=== PATIENT | male | born 1940 | race Caucasian/White ===

== ENCOUNTER 2018-11-15 20:14 | Observation (INO) | payer MEDICARE, OTHER, SELFPAY ==
[2018-11-15] VITALS (40 sets, daily range): BP systolic 116–160; BP diastolic 57–116; PULSE 59–92; RESP 11–38; TEMP 37; O2SAT 86–97
--- NOTE | 2018-11-15 20:15 | W.ED.GENAD ---
Discharge Plan Disposition Patient Disposition: [facility] INPATIENT Condition: Good Discharge Details Chief Complaint: Dizzy/Sync Clinical Impression: Syncope Primary Care Provider: Surinder Aaron ED Provider: Chetan Guzman Home Meds and New Rx's Prescriptions: No Action terazosin 1 mg Capsule 1 mg PO DAILY RF: 0 omeprazole 40 mg Capsule,Delayed Release(Dr/Ec) 40 mg PO DAILY RF: 0 aspirin [Aspir-81] 81 mg Tablet,Delayed Release (Dr/Ec) 81 mg PO HS RF: 0 Medical Decision Making 78-year-old male here with syncopal event. He has had a couple beers tonight. He does not typically drink. He has no complaints of at this time. He has had syncope but in the distant past. He has low O2 saturations with a long history of smoking but has no known lung disease, has no wheezing, does not use inhalers. He denies feeling short of breath. He has no chest pain. He has no leg pain or leg swelling. He has no headache and is neurologically intact. He did feel the event happening. He has no murmur. We will maintain on monitor for rhythm monitoring. His EKG shows nothing acute currently. Laboratory studies sent. Will check urine. We will get CTA of the chest to evaluate for PE given syncope and low O2 saturations. Patient laboratory studies are unremarkable other than an elevated TSH but the free T4 is normal. Urinalysis negative. Alcohol level essentially 0. CT of the chest shows no PE. There is no effusion or consolidation. He has COPD changes only. Likely his oxygen saturations are related to his previous smoking. He has been sinus rhythm on the monitor. However, given his age and witnessed syncopal event he should be observed overnight on a monitor though I think this was likely just a vagal event. Case discussed with hospitalist. Patient seen by hospitalist. Patient admitted for monitoring overnight. Lab Data Lab results reviewed: Yes I reviewed the patient's lab results. ECG Data Attestation: I personally reviewed and interpreted this ECG (s) as follows: Prior ECG tracings: not available for review Interpretation: Normal sinus rhythm at 69. Left axis. No acute ST changes. HPI General Mode of arrival: EMS. Date/Time Provider Initiated Documentation: 11/15/18 20:30. Limitations to Documentation: no limitations. Information obtained by: patient. HPI Narrative: Patient presents to ED by ambulance after syncopal event. Patient is up here visiting family. They were having dinner. He has had a couple of beers and typically does not drink. He knew something was wrong and started to feel lightheaded and unwell. Did not say anything and eventually passed out for about 30 to 40 seconds. He came to relatively quickly and there is no report of seizure activity or confusion. EMS was called. Fingerstick was normal on scene. Vital signs were normal on scene. He is awake and alert and has no complaints of. He reports passing out in the distant past but nothing recently. He is a former smoker but has no known cardiovascular disease or lung disease. He denies any recent illness. He has no fever, cough, shortness of breath, chest pain, abdominal pain, vomiting, diarrhea, black stool, bloody stool, urinary symptoms. Related Data Home Medications Medication Instructions Recorded Confirmed aspirin [Aspir-81] 81 mg PO HS 11/15/18 11/15/18 omeprazole 40 mg PO DAILY 11/15/18 11/15/18 terazosin 1 mg PO DAILY 11/15/18 11/15/18 Allergies Allergy/AdvReac Type Severity Reaction Status Date / Time No Known Allergies Allergy Unverified 11/15/18 20:26 Review of Systems Review of Systems 04/14 Review of Systems completed and is negative except as stated above in HPI (Systems reviewed: Const, Eyes, ENT, Resp, CV, GI, , MSK, Skin, Neuro) PFSH Medical History GERD (gastroesophageal reflux disease) (Chronic) HTN (hypertension) (Chronic) Prostate cancer (Chronic) Social History Smoking/Tobacco Use Status: Former Tobacco Use Quit Date: 11/15/18 Alcohol Intake: current Alcohol Intake frequency: holidays/special occasions only Alcohol type: beer Drug use: Never Do you feel safe at home: Yes Do you feel safe in your relationship?: Yes Exam Narrative Exam Narrative: Vitals: Afebrile. Slightly elevated diastolic pressure. Low O2 saturation in the 90 range. Const: WDWN elderly male in NAD. HEENT: NC/AT. Normal facial exam. Eyes: Normal conjunctiva and sclera. Neck: Supple. Trachea midline. Lungs: Normal respiratory effort. Lungs are clear. Cor: RRR without murmur/gallop. Good radial pulses. GI: Soft. NT/ND. No guarding or rebound. Neuro: A+O x 3. CN II-XII in tact. Normal strength and no focal deficit. Normal sensory. Normal speech and cognition. Ext: No C/C/E. No deformity or tenderness. No calf tenderness. Skin: Warm and dry without rash.
--- NOTE | 2018-11-15 20:18 | ED.GENADUL_ITS ---
Discharge Plan Disposition Patient Disposition: [facility] INPATIENT Condition: Good Discharge Details Chief Complaint: Dizzy/Sync Clinical Impression: Syncope Primary Care Provider: Surinder Aaron ED Provider: Chetan Guzman Home Meds and New Rx's Prescriptions: No Action terazosin 1 mg Capsule 1 mg PO DAILY RF: 0 omeprazole 40 mg Capsule,Delayed Release(Dr/Ec) 40 mg PO DAILY RF: 0 aspirin [Aspir-81] 81 mg Tablet,Delayed Release (Dr/Ec) 81 mg PO HS RF: 0 Medical Decision Making 78-year-old male here with syncopal event. He has had a couple beers tonight. He does not typically drink. He has no complaints of at this time. He has had syncope but in the distant past. He has low O2 saturations with a long history of smoking but has no known lung disease, has no wheezing, does not use inhalers. He denies feeling short of breath. He has no chest pain. He has no leg pain or leg swelling. He has no headache and is neurologically intact. He did feel the event happening. He has no murmur. We will maintain on monitor for rhythm monitoring. His EKG shows nothing acute currently. Laboratory studies sent. Will check urine. We will get CTA of the chest to evaluate for PE given syncope and low O2 saturations. Patient laboratory studies are unremarkable other than an elevated TSH but the free T4 is normal. Urinalysis negative. Alcohol level essentially 0. CT of the chest shows no PE. There is no effusion or consolidation. He has COPD changes only. Likely his oxygen saturations are related to his previous smoking. He has been sinus rhythm on the monitor. However, given his age and witnessed syncopal event he should be observed overnight on a monitor though I think this was likely just a vagal event. Case discussed with hospitalist. Patient seen by hospitalist. Patient admitted for monitoring overnight. Lab Data Lab results reviewed: Yes I reviewed the patient's lab results. ECG Data Attestation: I personally reviewed and interpreted this ECG (s) as follows: Prior ECG tracings: not available for review Interpretation: Normal sinus rhythm at 69. Left axis. No acute ST changes. HPI General Mode of arrival: EMS . Date/Time Provider Initiated Documentation: 11/15/18 20:30 . Limitations to Documentation: no limitations . Information obtained by: patient . HPI Narrative: Patient presents to ED by ambulance after syncopal event. Patient is up here visiting family. They were having dinner. He has had a couple of beers and typically does not drink. He knew something was wrong and started to feel lightheaded and unwell. Did not say anything and eventually passed out for about 30 to 40 seconds. He came to relatively quickly and there is no report of seizure activity or confusion. EMS was called. Fingerstick was normal on scene. Vital signs were normal on scene. He is awake and alert and has no complaints of. He reports passing out in the distant past but nothing recently. He is a former smoker but has no known cardiovascular disease or lung disease. He denies any recent illness. He has no fever, cough, shortness of breath, chest pain, abdominal pain, vomiting, diarrhea, black stool, bloody stool, urinary symptoms. Related Data Home Medications Medication Instructions Recorded Confirmed aspirin [Aspir-81] 81 mg PO HS 11/15/18 11/15/18 omeprazole 40 mg PO DAILY 11/15/18 11/15/18 terazosin 1 mg PO DAILY 11/15/18 11/15/18 Allergies Allergy/AdvReac Type Severity Reaction Status Date / Time No Known Allergies Allergy Unverified 11/15/18 20:26 Review of Systems Review of Systems 04/14 Review of Systems completed and is negative except as stated above in HPI (Systems reviewed: Const, Eyes, ENT, Resp, CV, GI, , MSK, Skin, Neuro) PFSH Medical History GERD (gastroesophageal reflux disease) (Chronic) HTN (hypertension) (Chronic) Prostate cancer (Chronic) Social History Smoking/Tobacco Use Status: Former Tobacco Use Quit Date: 11/15/18 Alcohol Intake: current Alcohol Intake frequency: holidays/special occasions only Alcohol type: beer Drug use: Never Do you feel safe at home: Yes Do you feel safe in your relationship?: Yes Exam Narrative Exam Narrative: Vitals: Afebrile. Slightly elevated diastolic pressure. Low O2 saturation in the 90 range. Const: WDWN elderly male in NAD. HEENT: NC/AT. Normal facial exam. Eyes: Normal conjunctiva and sclera. Neck: Supple. Trachea midline. Lungs: Normal respiratory effort. Lungs are clear. Cor: RRR without murmur/gallop. Good radial pulses. GI: Soft. NT/ND. No guarding or rebound. Neuro: A+O x 3. CN II-XII in tact. Normal strength and no focal deficit. Normal sensory. Normal speech and cognition. Ext: No C/C/E. No deformity or tenderness. No calf tenderness. Skin: Warm and dry without rash.
[2018-11-15 20:46] LABS: Abs Immature Grans 0.02 k/cumm (0.0-0.09); Absolute Basophil Count 0.02 k/cumm (0.0-0.2); Absolute Eosinophil Count 0.17 k/cumm (0.0-0.7); Absolute Monocyte Count 0.89 k/cumm (0.11-0.7); Absolute Neutrophil Count 4.38 k/cumm (1.2-6.7); Basophils % 0.2; Eosinophils % 1.9; HCT 41.2 % (40.0-50.0); HGB 13.9 g/dL (13.5-17.5); Immature Grans % 0.2; Lymphocytes % 37.6; Mean Corp. HGB Concentration 33.7 g/dL (32.0-36.0); Mean Corpuscular Volume 91.8 fL (80-95); Mean Platelet Volume 10.6 fL (8.0-11.0); Monocytes % 10.1; Platelet Count 245 x1000/uL (130-400); RBC 4.49 m/cumm (4.50-6.00); RBC Distribution Width 13.1 % (11.8-14.1); White Blood Cell Count 8.78 k/cumm (4.4-10.8)
[2018-11-15 21:02] LABS: ETHANOL BLOOD 6.6 mg/dL (<3)
[2018-11-15 21:13] LABS: ALT 27 U/L (12-78); AST 16 U/L (15-37); Albumin 3.8 g/dL (3.4-5.0); Alkaline Phosphatase 102 U/L (46-116); BUN 20 mg/dL (7-18); Bilirubin, Total 0.4 mg/dL (0.2-1.0); CREATININE 1.09 mg/dL (0.70-1.30); Calcium 9.2 mg/dL (8.5-10.1); Chloride 104 mmol/L (98-107); Glucose 120 mg/dL (70-100); Magnesium 2.2 mg/dL (1.8-2.4); Potassium 4.2 mmol/L (3.5-5.1); Sodium 141 mmol/L (136-145); TSH (W/Ref FT4) 5.32 uIU/mL (0.358-3.74); Total Protein 7.2 g/dL (6.4-8.2)
[2018-11-15 21:14] LABS: Troponin I < 0.02 ng/mL (0.00-0.06)
[2018-11-15 21:31] LABS: FREE T4 0.86 ng/dL (0.76-1.46)
[2018-11-15 21:39] LABS: Bilirubin Negative (Negative); Blood Negative (Negative); Clarity Clear; Glucose Negative (Negative); Ketones Negative (Negative); Leukocyte Esterase Negative (Negative); Nitrite Negative (Negative); Urobilinogen 0.2 EU/dL (Up TO 0.2)
[2018-11-15] MEDS: Normal Saline 1,000 ML 150 ML IV (21:40)
[2018-11-15] MEDS: Normal Saline Flush 10 ML SYR IVP (21:41)
[2018-11-15] MEDS: Omnipaque 350 MG/ML 100 ML BTL IJ (22:16)
--- NOTE | 2018-11-15 22:26 | DI.CT_ITS ---
SYMPTOM/DIAGNOSIS: SYNCOPE WITH LOW [address]: CT angiography was performed with multi slice acquisition and multi planar and 3D reconstruction. There are no prior comparison exams. No pulmonary emboli or aortic dissection is seen. There are mild atherosclerotic changes. There are mild emphysematous changes and mild apical scarring. There is no evidence of mass, adenopathy or a pneumothorax. There is no evidence of fracture. IMPRESSION: Mild emphysematous changes. No acute abnormality.
--- NOTE | 2018-11-15 22:47 | DI.VRAD_ITS ---
EXAM: CT Angiography Chest With Contrast EXAM DATE/TIME: 11/15/2018 8:32 PM CLINICAL HISTORY: 78 years old, male; Signs and symptoms; Other: Syncope with low saturations TECHNIQUE: Imaging protocol: Axial computed tomographic angiography images of the chest with intravenous contrast using CT angiography protocol. Coronal and sagittal reformatted images were created and reviewed. 3D rendering: MIP reconstructed images were created and reviewed. Radiation optimization: All CT scans at this facility use at least one of these dose optimization techniques: automated exposure control; mA and/or kV adjustment per patient size (includes targeted exams where dose is matched to clinical indication); or iterative reconstruction. Contrast material: OMNIPAQUE; Contrast volume: 100 ml; Contrast route: LT AC; COMPARISON: No relevant prior studies available. FINDINGS: Pulmonary arteries: Unremarkable. No obvious pulmonary emboli. Aorta: Unremarkable. No aortic aneurysm. No aortic dissection. Lungs: Mild emphysematous changes. Pleural space: Unremarkable. No pneumothorax. No pleural effusion. Heart: Unremarkable. No pericardial effusion. No obvious heart strain. Lymph nodes: Unremarkable. No enlarged lymph nodes. Bones/joints: Unremarkable. No acute fracture. Soft tissues: Unremarkable. IMPRESSION: Mild emphysematous changes. No acute findings. Dictated and Authenticated by: Guy Yañez MD. Ordering:GINA Benton MD
--- NOTE | 2018-11-15 23:16 | W.PM.HP.N ---
Date of service: 11/15/18 Time of Service: 23:16 Assessment and Plan (1) Syncope: Current visit: Yes Status: Chronic Syncope. Clearly a vagal episode. Will maintain on telemetry overnight to rrule out arrhythmia. Reviewed advance directives, requests full code. History of Present Illness Chief Complaint: syncope Narrative: 78 year old was eating an enormous sausage sandwich when he became nauseous, diaphoretic, pale and woozy, then passed out. No CP, palpitaions. Was immediatley lucid following spell. Work up in ER unrevealing but was admitted for monitoring to r/o arrrthymia. Patient feels entirely well at present. Note that these events were witnessed by and brother in law. Review of Systems Review of Systems All systems reviewed & are unremarkable except as noted in HPI and below PFSH Medical History GERD (gastroesophageal reflux disease) (Chronic) HTN (hypertension) (Chronic) Prostate cancer (Chronic) Social History Smoking/Tobacco Use Status: Former Tobacco Use Quit Date: 11/15/18 Alcohol Intake: current Alcohol Intake frequency: holidays/special occasions only Alcohol type: beer Drug use: Never Do you feel safe at home: Yes Do you feel safe in your relationship?: Yes Meds Home Medications Medication Instructions Recorded Confirmed Type aspirin [Aspir-81] 81 mg PO HS 11/15/18 11/15/18 History omeprazole 40 mg PO DAILY 11/15/18 11/15/18 History terazosin 1 mg PO DAILY 11/15/18 11/15/18 History Allergies Allergy/AdvReac Type Severity Reaction Status Date / Time No Known Allergies Allergy Unverified 11/15/18 20:26 Exam Narrative Exam Narrative: 128/99, 77, 17, 37.0. HEENT no trauma; neck supple; lungs clear; heart RRR w/o m/r/g; abdomen soft NT; extr: no edema, pulses equal; neuro Ox3, non-focal Results CTA chest no PE, emphysema Labs : 11/15/18 20:20 11/15/18 20:20 Laboratory Results - last 24 hr 11/15/18 11/15/18 11/15/18 20:20 20:20 20:20 WBC 8.78 RBC 4.49 L Hgb 13.9 Hct 41.2 MCV 91.8 MCH 31.0 MCHC 33.7 RDW 13.1 Plt Count 245 MPV 10.6 Immature Gran % 0.2 Neutrophils % 50.0 Lymphocytes % 37.6 Monocytes % 10.1 Eosinophils % 1.9 Basophils % 0.2 Absolute Neutrophils 4.38 Absolute Lymphocytes 3.30 Absolute Monocytes 0.89 H Absolute Eosinophils 0.17 Absolute Basophils 0.02 Sodium 141 Potassium 4.2 Chloride 104 Carbon Dioxide 27.0 Anion Gap 10.0 BUN 20 H Creatinine 1.09 Estimated GFR/1.73 m2 >= 60.00 Glucose 120 H Calcium 9.2 Magnesium 2.2 Total Bilirubin 0.4 AST 16 ALT 27 Alkaline Phosphatase 102 Troponin I < 0.02 Total Protein 7.2 Albumin 3.8 TSH 5.32 H Free T4 0.86 Urine Color Urine Clarity Urine pH Ur Specific [place] Urine Protein Urine Ketones Urine Blood Urine Nitrite Urine Bilirubin Urine Urobilinogen Ur Leukocyte Esterase Urine Glucose Ethyl Alcohol 6.6 11/15/18 20:45 WBC RBC Hgb Hct MCV MCH MCHC RDW Plt Count MPV Immature Gran % Neutrophils % Lymphocytes % Monocytes % Eosinophils % Basophils % Absolute Neutrophils Absolute Lymphocytes Absolute Monocytes Absolute Eosinophils Absolute Basophils Sodium Potassium Chloride Carbon Dioxide Anion Gap BUN Creatinine Estimated GFR/1.73 m2 Glucose Calcium Magnesium Total Bilirubin AST ALT Alkaline Phosphatase Troponin I Total Protein Albumin TSH Free T4 Urine Color Yellow Urine Clarity Clear Urine pH 6.0 Ur Specific [place] 1.010 Urine Protein Negative Urine Ketones Negative Urine Blood Negative Urine Nitrite Negative Urine Bilirubin Negative Urine Urobilinogen 0.2 Ur Leukocyte Esterase Negative Urine Glucose Negative Ethyl Alcohol Last Vital Signs Temp 37.0 C 11/15/18 20:16 Pulse 77 11/15/18 20:16 Resp 17 11/15/18 20:23 BP 120/99 H 11/15/18 20:16 Pulse Ox 90 L 11/15/18 20:16
[2018-11-16] VITALS (13 sets, daily range): BP systolic 103–166; BP diastolic 66–99; PULSE 61–77; RESP 16–25; TEMP 36.4–37.2; O2SAT 90–95
[2018-11-16] MEDS: Aspirin 81 MG CHEW CH (00:06)
[2018-11-16] MEDS: Omeprazole 20 MG CAPCR 40 MG PO (07:22)
[2018-11-16] MEDS: Normal Saline Flush 10 ML SYR IVP (07:29)
[2018-11-16 09:12] LABS: Troponin I < 0.02 ng/mL (0.00-0.06)
[2018-11-16 10:03] LABS: Abs Immature Grans 0.02 k/cumm (0.0-0.09); Absolute Basophil Count 0.02 k/cumm (0.0-0.2); Absolute Eosinophil Count 0.14 k/cumm (0.0-0.7); Absolute Lymphocyte Count 2.06 k/cumm (1.2-3.4); Basophils % 0.3; Eosinophils % 1.8; HCT 40.5 % (40.0-50.0); HGB 13.5 g/dL (13.5-17.5); Immature Grans % 0.3; Lymphocytes % 26.6; Mean Corp. HGB Concentration 33.3 g/dL (32.0-36.0); Mean Corpuscular Volume 92.9 fL (80-95); Mean Platelet Volume 10.7 fL (8.0-11.0); Monocytes % 11.6; Neutrophils % 59.4; Platelet Count 238 x1000/uL (130-400); RBC 4.36 m/cumm (4.50-6.00); RBC Distribution Width 13.3 % (11.8-14.1); White Blood Cell Count 7.74 k/cumm (4.4-10.8)
[2018-11-16 10:12] LABS: Anion Gap 9.8 mmol/L (3-11); BUN 20 mg/dL (7-18); CO2 25.2 mmol/L (21.0-32.0); CREATININE 1.21 mg/dL (0.70-1.30); Calcium 8.6 mg/dL (8.5-10.1); Chloride 106 mmol/L (98-107); Estimated GFR 57.85 (mL/min/1.73m2); Glucose 129 mg/dL (70-100); Magnesium 2.1 mg/dL (1.8-2.4); Potassium 4.4 mmol/L (3.5-5.1); Sodium 141 mmol/L (136-145)
--- NOTE | 2018-11-16 10:37 | DI.CT_ITS ---
SYMPTOM/DIAGNOSIS: NAUSEA AND PAIN AFTER EATING FATTY FOOD ABDOMEN CT: A noncontrast exam was performed. There is a small amount of residual IV contrast seen within the renal collecting system related to the previous day's chest CT. A small amount of contrast is also seen in the gallbladder. The gallbladder is not abnormally distended. No wall thickening is seen. The liver, spleen, adrenals and pancreas are unremarkable. There is calcification in the abdominal aorta and iliac arteries with no evidence of aneurysm. There is a moderate quantity of stool. The appendix is not included on the exam. There is no bowel dilatation. IMPRESSION: No acute abnormality.
--- NOTE | 2018-11-16 11:05 | DI.VRAD_ITS ---
EXAM: CT Abdomen Without Contrast EXAM DATE/TIME: 11/16/2018 9:50 AM CLINICAL HISTORY: 78 years old, male; Abdominal pain; Patient HX: Nausea after eating fatty goods TECHNIQUE: Imaging protocol: Axial computed tomography images of the abdomen without contrast. Coronal and sagittal reformatted images were created and reviewed. COMPARISON: No relevant prior studies available. FINDINGS: Liver: Normal. No mass. Gallbladder and bile ducts: Normal. No calcified stones. No ductal dilation. Pancreas: Normal. No ductal dilation. Spleen: One or more accessory splenules. Adrenals: Normal. No mass. Kidneys and ureters: Residual high density material within the renal collecting system bilaterally and gallbladder lumen consistent with CT chest with intravenous iodinated contrast yesterday. 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 Intraperitoneal space: Unremarkable. No free air. No significant fluid collection. Lymph nodes: Unremarkable. No enlarged lymph nodes. Vasculature: Calcification of the abdominal aorta and/or iliac arteries consistent with atherosclerotic vessel disease. Bones/joints: Unremarkable.No acute fracture. No dislocation. Soft tissues: Unremarkable. IMPRESSION: Residual high density material within the renal collecting system bilaterally and gallbladder lumen consistent with CT chest with intravenous iodinated contrast yesterday. Dictated and Authenticated by: Ashkan Chance MD. Ordering:JOSEFINA José MD
--- NOTE | 2018-11-16 11:19 | PDOC.CMIN ---
- If Service Date Differs Date of service: 11/16/18 Time of Service: 11:19 Care Management Initial Assess REASON FOR HOSPITALIZATION:: Syncope PAST MEDICAL HISTORY/PAST SURGICAL HISTORY:: GERD, Prostate Ca and HTN. PREVIOUS FUNCTIONAL STATUS/SOCIAL/FAMILY SUPPORTS:: Campbell, is retired he lives with his SO Heaven Mcnally in [place], [place]. He has been retired for about a year ago. He has three boys that are grown that live in [place]. He is . He is independent with ADL?s including transportation. He recently just returned from [facility] where he has a winter home and he camps locally at [facility]. CURRENT FUNCTIONAL STATUS:: Campbell is alert and engaged he laughs frequently and is appropiate during assessment. He is hard of hearing. Campbell does not use any equipment at home, he denies any history of sleep apnea or oxygen use at home. His SO states she often has to check on him throughout the night to see if he is breathing. She states his breathing is very quiet. Campbell reports he has been told his Sao2 dropped when he was asleep lst evening. ADVANCE DIRECTIVES:: Not on file, SO has a copy she will bring it in to be scanned. Has patient been provided with information about the portal?: Yes Did the patient sign up for the portal?: No CODE STATUS:: Full Code INSURANCE COVERAGE / FINANCIAL ISSUES:: Medicare, [employer] CURRENT HOME/COMMUNITY SERVICES/EQUIPMENT:: None at this time PRIMARY CARE PHYSICIAN:: [facility]– [place], [place]. Aaron [phone] POTENTIAL DISCHARGE NEEDS:: Follow up with primary care provier prior to next schedule visit on 01/15/19. PATIENT/FAMILY EDUCATION NEEDS:: Discharge education, limitations and follow up plan of care including ask me three and self management. ANTICIPATED BARRIERS TO DISCHARGE:: None identified. TRANSPORTATION:: Via private car with SO at time of discharge. PLAN:: Campbell remains observation at this time r/t syncope. He continues on cardiac monitoring and will have a CT. Anticipate he will be discharged over the weekend and [facility] CM to fax inpatient information and request for an appointment to primary care provider for follow up.
--- NOTE | 2018-11-16 11:28 | INITIAL_ITS ---
- If Service Date Differs Date of service: 11/16/18 Time of Service: 11:19 Care Management Initial Assess REASON FOR HOSPITALIZATION:: Syncope PAST MEDICAL HISTORY/PAST SURGICAL HISTORY:: GERD, Prostate Ca and HTN. PREVIOUS FUNCTIONAL STATUS/SOCIAL/FAMILY SUPPORTS:: Campbell, is retired he lives with his SO Heaven Mcnally in [place], [place]. He has been retired for about a year ago. He has three boys that are grown that live [place]. He is . He is independent with ADL?s including transportation. He recently just returned from [facility] where he has a winter home and he camps locally at [facility]. CURRENT FUNCTIONAL STATUS:: Campbell is alert and engaged he laughs frequently and is appropiate during assessment. He is hard of hearing. Campbell does not use any equipment at home, he denies any history of sleep apnea or oxygen use at home. His SO states she often has to check on him throughout the night to see if he is breathing. She states his breathing is very quiet. Campbell reports he has been told his Sao2 dropped when he was asleep lst evening. ADVANCE DIRECTIVES:: Not on file, SO has a copy she will bring it in to be scanned. Has patient been provided with information about the portal?: Yes Did the patient sign up for the portal?: No CODE STATUS:: Full Code INSURANCE COVERAGE / FINANCIAL ISSUES:: Medicare, [employer] CURRENT HOME/COMMUNITY SERVICES/EQUIPMENT:: None at this time PRIMARY CARE PHYSICIAN:: [facility], Dr. Aaron [phone] POTENTIAL DISCHARGE NEEDS:: Follow up with primary care provier prior to next schedule visit on 01/15/19. PATIENT/FAMILY EDUCATION NEEDS:: Discharge education, limitations and follow up plan of care including ask me three and self management. ANTICIPATED BARRIERS TO DISCHARGE:: None identified. TRANSPORTATION:: Via private car with SO at time of discharge. PLAN:: Campbell remains observation at this time r/t syncope. He continues on cardiac monitoring and will have a CT. Anticipate he will be discharged over the weekend and [facility]. CM to fax inpatient information and request for an appointment to primary care provider for follow up.
--- NOTE | 2018-11-16 13:05 | DSE_ITS ---
Date of service: 11/16/18 Time of Service: 12:59 DS: Diagnosis Discharge Diagnosis (1) Syncope: Status: Chronic Discharge Plan Disposition Condition: Good Discharge Details Reason For Visit: SYNCOPE Admit Date/Time: 11/15/18 23:26 Admit Provider: Terry Story Attending Provider: Terry Story [facility] Hospital Course: 78 year old was eating an enormous sausage sandwich when he became nauseous, diaphoretic, pale and woozy, then passed out. No CP, palpitaions. Was immediatley lucid following spell. Work up in ER unrevealing but was admitted for monitoring to r/o arrrthymia. Patient feels entirely well at present. Note that these events were witnessed by and brother in law. His symptoms are likely from vasovagal. 30 day holter monitor will be placed on patient with follow up to PCP for arrthymias. Recommend he have an outpatient overnight oximetery sleep study as he did become hypoxia while asleep last night requiring oxygen. 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 He should also have an echo and carotid u/s which could be done outpatient. He feels and looks well. He states during the event he was nauseated, diaphoretic, cool and clammy, he did not have vertigo, dizziness, blurred vision, or loss of bowel and bladder. 1) Syncope: Current visit: Yes Status: Chronic Syncope. Clearly a vagal episode. Will maintain on telemetry overnight to rule out arrhythmia. Reviewed advance directives, requests full code. Home Meds and New Rx's Prescriptions: Continued terazosin 1 mg Capsule 1 mg PO DAILY RF: 0 omeprazole 40 mg Capsule,Delayed Release(Dr/Ec) 40 mg PO DAILY RF: 0 aspirin [Aspir-81] 81 mg Tablet,Delayed Release (Dr/Ec) 81 mg PO HS RF: 0 Discharge Instructions Instructions: Syncope (GEN) Additional Instructions: Follow up with your Primary doctor in 1-2 weeks. Wear holter monitor for 30 days. Consider smoking cessation. Recommend you have an echo, PFT, u/s of your carotids, overnight sleep oximetry. If you have chest pain, shortness of breath, fever, syncope report to the emergency department immediately. Activity:: Activity as Tolerated Activity:: Activity as Tolerated Equipment/Supplies:: No Equipment Needed Diet:: As Tolerated Discharge Orders Other Ambulatory Orders: US carotid (Routine) Location: Determined by Patient Ordered By: Estefanía Aguilera US echocardiogram (Routine) Location: Determined by Patient Ordered By: Estefanía Aguilera Cardiac Event Recorder (Outpt) (ONCE) Timeframe: 20181117 Facility: [facility] - Location: Respiratory Therapy Ordered By: Analisa Chapman SaO2 Overnight Study (Outpt) (ONCE) Timeframe: 20181117 Facility: [facility] - Location: Respiratory Therapy Ordered By: Analisa Chapman Exam Narrative Exam Narrative: HEENT no trauma; neck supple; lungs clear; heart RRR w/o m/r/g; abdomen soft NT; extr: no edema, pulses equal; neuro Ox3, non-focal DS: Data Vitals/I&O Vitals and I&O: Vital Signs Temperature 36.4 C L 11/16/18 07:35 Temperature Source Tympanic 11/16/18 07:35 Pulse 61 11/16/18 07:35 Pulse Rhythm Regular 11/16/18 07:33 Pulse 75 11/16/18 00:02 Respiratory Rate 21 11/16/18 07:35 Respiratory Effort Non-Labored 11/16/18 07:33 Respiratory Depth Normal 11/16/18 07:33 Respiratory Pattern Normal 11/16/18 07:33 Blood Pressure 134/84 11/16/18 07:35 Blood Pressure Mean 72 11/16/18 00:02 Pulse Oximetry 94 L 11/16/18 11:38 Oxygen Delivery Method Room Air 11/16/18 11:38 Oxygen Flow Rate 0 11/16/18 11:38 Pain Level 0 11/16/18 00:33 Comment 11/16/18 00:36 Intake & Output 11/15/18 11/16/18 11/16/18 23:59 11:59 23:59 Intake Total 970 / 970 Output Total 300 / 300 Balance 670 / 670 Weight 104.2 kg 104.2 kg Intake: IV 510 / 510 Oral 460 / 460 Output: Urine 300 / 300 Other: Urine Color Yellow Urine Appearance Clear Urine Odor None Comment pt voided in the toilet Voiding Methods Toilet Completed studies during hospitalization [Text1]: EXAM: CT Angiography Chest With Contrast EXAM DATE/TIME: 11/15/2018 8:32 PM CLINICAL HISTORY: 78 years old, male; Signs and symptoms; Other: Syncope with low saturations TECHNIQUE: Imaging protocol: Axial computed tomographic angiography images of the chest with intravenous contrast using CT angiography protocol. Coronal and sagittal reformatted images were created and reviewed. 3D rendering: MIP reconstructed images were created and reviewed. Radiation optimization: All CT scans at this facility use at least one of these dose optimization techniques: automated exposure control; mA and/or kV adjustment per patient size (includes targeted exams where dose is matched to clinical indication); or iterative reconstruction. Contrast material: OMNIPAQUE; Contrast volume: 100 ml; Contrast route: LT AC; COMPARISON: No relevant prior studies available. FINDINGS: Pulmonary arteries: Unremarkable. No obvious pulmonary emboli. Aorta: Unremarkable. No aortic aneurysm. No aortic dissection. Lungs: Mild emphysematous changes. Pleural space: Unremarkable. No pneumothorax. No pleural effusion. Heart: Unremarkable. No pericardial effusion. No obvious heart strain. Lymph nodes: Unremarkable. No enlarged lymph nodes. Bones/joints: Unremarkable. No acute fracture. Soft tissues: Unremarkable. IMPRESSION: Mild emphysematous changes. No acute findings. Dictated and Authenticated by: Guy Yañez MD. EXAM: CT Abdomen Without Contrast EXAM DATE/TIME: 11/16/2018 9:50 AM CLINICAL HISTORY: 78 years old, male; Abdominal pain; Patient HX: Nausea after eating fatty goods TECHNIQUE: Imaging protocol: Axial computed tomography images of the abdomen without contrast. Coronal and sagittal reformatted images were created and reviewed. COMPARISON: No relevant prior studies available. FINDINGS: Liver: Normal. No mass. Gallbladder and bile ducts: Normal. No calcified stones. No ductal dilation. Pancreas: Normal. No ductal dilation. Spleen: One or more accessory splenules. Adrenals: Normal. No mass. Kidneys and ureters: Residual high density material within the renal collecting system bilaterally and gallbladder lumen consistent with CT chest with intravenous iodinated contrast yesterday. 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 Intraperitoneal space: Unremarkable. No free air. No significant fluid collection. Lymph nodes: Unremarkable. No enlarged lymph nodes. Vasculature: Calcification of the abdominal aorta and/or iliac arteries consistent with atherosclerotic vessel disease. Bones/joints: Unremarkable.No acute fracture. No dislocation. Soft tissues: Unremarkable. IMPRESSION: Residual high density material within the renal collecting system bilaterally and gallbladder lumen consistent with CT chest with intravenous iodinated contrast yesterday. Dictated and Authenticated by: Ashkan Chance MD. Labs on day of discharge: Labs from last 24 hours 11/16/18 11/16/18 11/16/18 08:40 08:40 08:40 WBC 7.74 RBC 4.36 L Hgb 13.5 Hct 40.5 MCV 92.9 MCH 31.0 MCHC 33.3 RDW 13.3 Plt Count 238 MPV 10.7 Immature Gran % 0.3 Neutrophils % 59.4 Lymphocytes % 26.6 Monocytes % 11.6 Eosinophils % 1.8 Basophils % 0.3 Absolute Neutrophils 4.60 Absolute Lymphocytes 2.06 Absolute Monocytes 0.90 H Absolute Eosinophils 0.14 Absolute Basophils 0.02 Sodium 141 Potassium 4.4 Chloride 106 Carbon Dioxide 25.2 Anion Gap 9.8 BUN 20 H Creatinine 1.21 Estimated GFR/1.73 m2 57.85 Glucose 129 H Calcium 8.6 Magnesium 2.1 Total Bilirubin AST ALT Alkaline Phosphatase Troponin I < 0.02 Total Protein Albumin TSH Free T4 Urine Color Urine Clarity Urine pH Ur Specific [place] Urine Protein Urine Ketones Urine Blood Urine Nitrite Urine Bilirubin Urine Urobilinogen Ur Leukocyte Esterase Urine Glucose Ethyl Alcohol 11/15/18 11/15/18 11/15/18 20:45 20:20 20:20 WBC 8.78 RBC 4.49 L Hgb 13.9 Hct 41.2 MCV 91.8 MCH 31.0 MCHC 33.7 RDW 13.1 Plt Count 245 MPV 10.6 Immature Gran % 0.2 Neutrophils % 50.0 Lymphocytes % 37.6 Monocytes % 10.1 Eosinophils % 1.9 Basophils % 0.2 Absolute Neutrophils 4.38 Absolute Lymphocytes 3.30 Absolute Monocytes 0.89 H Absolute Eosinophils 0.17 Absolute Basophils 0.02 Sodium Potassium Chloride Carbon Dioxide Anion Gap BUN Creatinine Estimated GFR/1.73 m2 Glucose Calcium Magnesium Total Bilirubin AST ALT Alkaline Phosphatase Troponin I Total Protein Albumin TSH Free T4 Urine Color Yellow Urine Clarity Clear Urine pH 6.0 Ur Specific [place] 1.010 Urine Protein Negative Urine Ketones Negative Urine Blood Negative Urine Nitrite Negative Urine Bilirubin Negative Urine Urobilinogen 0.2 Ur Leukocyte Esterase Negative Urine Glucose Negative Ethyl Alcohol 6.6 11/15/18 20:20 WBC RBC Hgb Hct MCV MCH MCHC RDW Plt Count MPV Immature Gran % Neutrophils % Lymphocytes % Monocytes % Eosinophils % Basophils % Absolute Neutrophils Absolute Lymphocytes Absolute Monocytes Absolute Eosinophils Absolute Basophils Sodium 141 Potassium 4.2 Chloride 104 Carbon Dioxide 27.0 Anion Gap 10.0 BUN 20 H Creatinine 1.09 Estimated GFR/1.73 m2 >= 60.00 Glucose 120 H Calcium 9.2 Magnesium 2.2 Total Bilirubin 0.4 AST 16 ALT 27 Alkaline Phosphatase 102 Troponin I < 0.02 Total Protein 7.2 Albumin 3.8 TSH 5.32 H Free T4 0.86 Urine Color Urine Clarity Urine pH Ur Specific [place] Urine Protein Urine Ketones Urine Blood Urine Nitrite Urine Bilirubin Urine Urobilinogen Ur Leukocyte Esterase Urine Glucose Ethyl Alcohol PFSH Medical History GERD (gastroesophageal reflux disease) (Chronic) HTN (hypertension) (Chronic) Prostate cancer (Chronic) Social History Smoking/Tobacco Use Status: Former Tobacco Use Quit Date: 11/15/18 Alcohol Intake: current Alcohol Intake frequency: holidays/special occasions o nly Alcohol type: beer Drug use: Never Do you feel safe at home: Yes Do you feel safe in your relationship?: Yes
--- NOTE | 2018-11-16 16:43 | PDOC.CMDIS ---
- If Service Date Differs Date of service: 11/16/18 Time of Service: 16:43 LACE Index Scoring Tool - Questions: Length of Stay (in days): 2 Acuity (Admit via E.D.?): Yes E.D. Visits: 1 - Answers: Total Score: 6 Risk of Readmission: Low Risk Care Management Discharge Reason for Hospitalization: Syncope Discharge Plan: Campbell will be discharged home today. CM faxed his discharge summary to primary care provider . Campbell will follow up with provider and schedule an appointment follow up discharge. Patient/Family Education Needs: Discharge education, limitations and follow up plan of care including ask me three and self management. Campbell states he feels ready to be discharged and wants to go home.
--- NOTE | 2018-12-23 11:27 | CER_ITS ---
DATE OF DICTATION: December 23, 2018 [facility] BATTERY MONITOR REPORT MONITOR IN PLACE: 30 days, November 16 - December 15, 2018 Baseline rhythm sinus. No atrial fibrillation. Ventricular ectopy < 1%. Three stable events, no critical or serious events. Stable events included sinus arrhythmia with first-degree AV block. Symptoms including dizziness dur ing sinus arrhythmia.
== END 2018-11-16 15:28 | disposition home or self-care (01) ==
LOC: ER 11-16 00:09 → MS 11-16 00:16
PROVIDERS: Nurse Practitioner Family; Admitting Provider General Practice; Emergency Provider Emergency Medicine; Visit Provider Internal Medicine
DX: R55 Syncope and collapse (principal); K21.9 Gastro-esophageal reflux disease without esophagitis; I10 Essential (primary) hypertension
CPT/HCPCS: 36415; 71275; 74150; 80048; 80053; 93005; 93270; 99222; 99239; 99285; 80320; 81003; 83735; 84439; 84443; 84484; 85025; 93010; 99217; 99219; G0378; J3490

== ENCOUNTER 2018-12-23 08:28 | Outpatient (CLI) | payer MEDICARE, OTHER, SELFPAY | END 2018-12-23 08:48 | PROVIDERS: Referring Provider Internal Medicine; Visit Provider Internal Medicine Interventional Cardiology | DX: R55 Syncope and collapse (principal); I49.9 Cardiac arrhythmia, unspecified; I44.0 Atrioventricular block, first degree | CPT/HCPCS: 0298T ==

== ENCOUNTER 2023-02-06 22:20 | Emergency (ER) | payer MEDICARE, OTHER, SELFPAY ==
--- NOTE | 2023-02-06 22:31 | ED.GENADUL_ITS ---
Discharge Plan Disposition Patient Disposition: Home Condition: Improving Discharge Details Clinical Impression: Constipation Primary Care Provider: [facility] Provider: Ravindra Ramirez Home Meds and New Rx's Prescriptions: New docusate sodium [Colace] 100 mg capsule 100 mg PO DAILY Qty: 30 0RF Continued atorvastatin 40 mg tablet 40 mg PO DAILY clopidogrel 75 mg tablet 75 mg PO DAILY pantoprazole 40 mg tablet,delayed release (DR/EC) 40 mg PO DAILY magnesium 100 mg Tablet 100 mg PO DAILY coenzyme Q10 [CoQ-10] 100 mg Capsule 100 mg PO DAILY omega-3 fatty acids Capsule 2 cap PO DAILY metoprolol tartrate 25 mg tablet 25 mg PO DAILY PreserVision AREDS 2,148 mcg-113 mg-45 mg-17.4mg Tablet 1 tab PO BID Xarelto 20 mg tablet 20 mg PO DAILY cholecalciferol (vitamin D3) 100 mcg (4,000 unit) Capsule 2,000 mcg PO DAILY Discharge Instructions Instructions: Constipation (ED) Discharge Data Discharge Physician: Ravindra Ramirez Medical Decision Making Patient presented to the emergency department complaining of constipation but denies any abdominal pain. He was noted to be impacted and had a soapsuds enema with significant relief and had a very large bowel movement. He will be discharged home advised him to take some laxatives for regularity HPI General Date/Time Provider Initiated Documentation: 02/06/23 22:31 . HPI Narrative: Patient presents emergency department complaining of constipation for the last 3 days. States that he has been having hard stool denies any abdominal pain denies any nausea denies any vomiting Related Data Home Medications Medication Instructions Recorded Confirmed atorvastatin 40 mg tablet 40 mg PO DAILY 02/06/23 02/06/23 cholecalciferol (vitamin D3) 100 2,000 mcg PO DAILY 02/06/23 02/06/23 mcg (4,000 unit) capsule clopidogrel 75 mg tablet 75 mg PO DAILY 02/06/23 02/06/23 coenzyme Q10 100 mg capsule 100 mg PO DAILY 02/06/23 02/06/23 (CoQ-10) docusate sodium 100 mg capsule 100 mg PO DAILY #30 caps 02/06/23 (Colace) magnesium 100 mg tablet 100 mg PO DAILY 02/06/23 02/06/23 metoprolol tartrate 25 mg tablet 25 mg PO DAILY 02/06/23 02/06/23 omega-3 fatty acids 2 cap PO DAILY 02/06/23 02/06/23 pantoprazole 40 mg tablet,delayed 40 mg PO DAILY 02/06/23 02/06/23 release rivaroxaban 20 mg tablet (Xarelto) 20 mg PO DAILY 02/06/23 02/06/23 vitamins A,C,P-skhm-pjmowo 2,148 1 tab PO BID 02/06/23 02/06/23 mcg-113 mg-45 mg-17.4 mg tablet (PreserVision AREDS) Previous Rx's Medication Instructions Recorded docusate sodium 100 mg capsule 100 mg PO DAILY #30 caps 02/06/23 (Colace) Allergies Allergy/AdvReac Type Severity Reaction Status Date / Time No Known Allergies Allergy Unverified 11/15/18 20:26 General ANTONI: 3 Review of Systems Narrative: Review of Systems: Constitutional: No fevers, chills, sweats Eye: No recent visual problems ENT: No ear pain, nasal congestion, sore throat Respiratory: No shortness of breath, cough Cardiovascular: No Chest pain, palpitations, syncope Gastrointestinal: No nausea, vomiting, diarrhea Genitourinary: No hematuria Scott/Lymph: Negative for bruising tendency, swollen lymph glands Endocrine: Negative for excessive thirst, excessive hunger Musculoskeletal: No back pain, neck pain, joint pain, muscle pain, decreased range of motion Integumentary: No rash, pruritus, abrasions Neurologic: Alert & oriented X 4 Psychiatric: No anxiety, depression PFSH All Active Problems (Updated 02/06/23 @ 23:24 by Ravindra Ramirez MD) Constipation (Acute) Syncope (Chronic) Medical History (Updated 02/06/23 @ 23:24 by Ravindra Ramirez MD) GERD (gastroesophageal reflux disease) HTN (hypertension) Prostate cancer Social History Smoking/Tobacco Use Status: Former Tobacco Use Quit Date: 11/15/18 Smoking risk assessment performed?: Yes Alcohol Intake: current Alcohol Intake frequency: holidays/special occasions only Alcohol type: beer Drug use: Never Substance use type: does not use Housing: house Do you feel safe at home: Yes Do you feel safe in your relationship?: Yes Exam Narrative Exam Narrative: Exam; vitals signs as reported above normal Constitutional; In no acute distress, afebrile General: cooperative, healthy appearing, comfortable and no acute distress HEENT: Head: normal to inspection, no palpable skull fracture and normocephalic atraumatic Eyes: : appearance normal, both eyes and all related structures EOM intact bilaterally Pupils: PERRL : conjunctiva normal Direct ophthalmoscopy: normal light reflex, normal conjunctiva, normal visual acuity Ears: Normal TM, normal external canal Neck no JVD, supple non tender Neck: normal visual inspection, full ROM and no lymphadenopathy Chest: normal inspection of the chest Respiratory : normal respiratory effort and able to speak in complete sentences no wheezing no rales Cardio Rate: regular rate, rhythm: regular rhythm normal heart sounds S1 and S2 no murmurs, gallops, or rubs GI : normal to inspection, normal bowel sounds, soft, non tender, non distended, no organomegaly Back/Spine/ no CVA tenderness Thoracic/Lumbar Spine: no tenderness or deformities Skin no rashes or lesions Neuro: patient alert and no meningeal signs, Cranial Nerves: CN's II-XI intact bilaterally, Cognition: normal cognition, Speech: speech normal, Gait: normal gait, Depp tendon reflexes normal 2+ muscle strength 5/5 bilaterally Extremities, no edema, full range of motion, normal strength
[2023-02-06 22:40] VITALS: BP 143/64; PULSE 77; RESP 19; TEMP 36.6; O2SAT 89
[2023-02-06 23:45] VITALS: BP 143/68; PULSE 80; RESP 17; TEMP 36.5; O2SAT 93
== END 2023-02-06 23:54 | disposition home or self-care (01) ==
PROVIDERS: Emergency Provider Emergency Medicine Emergency Medical Services
DX: K59.00 Constipation, unspecified (principal); I10 Essential (primary) hypertension; Z79.02 Long term (current) use of antithrombotics/antiplatelets; Z87.891 Personal history of nicotine dependence
CPT/HCPCS: 99282

== ENCOUNTER 2023-06-24 19:36 | Emergency (ER) | payer MEDICARE, OTHER, SELFPAY ==
[2023-06-24 19:40] VITALS: BP 153/77; PULSE 71; RESP 18; TEMP 36.2; O2SAT 94
--- NOTE | 2023-06-24 19:45 | DI.CT_ITS ---
Exam(s) CT HEAD WO EXAM: CT HEAD WO CLINICAL HISTORY: fall on thinners. TECHNIQUE: Imaging Protocol: Axial computed tomography images with coronal and sagittal reformatted images were created and reviewed COMPARISON: No exams were available for comparison FINDINGS: There are no skull fractures. There is no fluid in the visualized paranasal sinuses. There is no evidence of intracranial hemorrhage, mass effect, or shift of midline structures. There are no extra-axial fluid collections. The ventricles are not enlarged or shifted and there is no blo od within the ventricular system nor within the basal cisterns. There is mild bilateral periventricular hypodensity consistent with chronic small vessel disease. IMPRESSION: No acute intracranial findings on this noninfused CT scan of the brain. RADIATION DOSE DELIVERED: Total DLP DATA REPOSITORY: All CT scans at this facility are submitted to the National Radiology Data Registry (NRDR) Dose Index Registry (DIR) with the [employer] (ACR). RADIATION OPTIMIZATION: All CT scans at this facility use at least one of these dose optimization te chniques: automated exposure control; mA and/or kV adjustment per patient size (includes targeted exa ms where dose is matched to clinical indication); or iterative reconstruction.
--- NOTE | 2023-06-24 19:50 | ED.GENADUL_ITS ---
Discharge Plan Disposition Patient Disposition: Home Condition: Stable Discharge Details Clinical Impression: Fall Primary Care Provider: Gita Casas ED Provider: Julián Brooks Home Meds and New Rx's Prescriptions: Continued atorvastatin 40 mg tablet 40 mg PO DAILY clopidogrel 75 mg tablet 75 mg PO DAILY Hold Instructions: Pt Stopped/Never Started pantoprazole 40 mg tablet,delayed release (DR/EC) 40 mg PO DAILY Hold Instructions: Pt Stopped/Never Started magnesium 100 mg Tablet 100 mg PO DAILY coenzyme Q10 [CoQ-10] 100 mg Capsule 100 mg PO DAILY omega-3 fatty acids Capsule 2 cap PO DAILY metoprolol tartrate 25 mg tablet 25 mg PO DAILY PreserVision AREDS 2,148 mcg-113 mg-45 mg-17.4mg Tablet 1 tab PO BID Xarelto 20 mg tablet 20 mg PO DAILY cholecalciferol (vitamin D3) 100 mcg (4,000 unit) Capsule 2,000 mcg PO DAILY docusate sodium [Colace] 100 mg capsule 100 mg PO DAILY Qty: 30 0RF Discharge Instructions Instructions: Fall Prevention for Older Adults (ED) Additional Instructions: You were seen in the emergency department for your mechanical fall at home, there is no signs of head or neck trauma, your CT scan is negative for any intracranial bleeding. Please take Tylenol for any minor pains but return for any severe increase in headache, visual changes, nausea vomiting, vertigo, gait abnormalities or repetitive questioning. Referrals: Gita Casas [Primary Care Provider] - Discharge Data Discharge Date/Time-TO BE ENTERED AT DEPARTURE: 06/24/23 21:03 Medical Decision Making This dictation utilizes [id number] dictation software and may contain unedited grammatical errors. 83 y/o M presents to ED today with a chief complaint of minor fall at home, bumped back of head, no complaints, on Xarelto. Denies neck pain, nausea, vomiting, repetitive questioning, ataxia. Patients' medical history: HTN, Anticoagulant use. Family and social history: noncontributory. Pertinent exam findings / vital signs include neuro intact, no vertebral tenderness, no signs of head trauma. Differential / pathologies of concern include ICH, minor fall. Diagnostic studies of: -CT Head wo Contrast - no ICH. Interventions of: -none. ED Course/Assessment/Plan: 83-year-old male on thinners presents with a minor fall at home, is reporting no pain or neurological abnormalities, CT head is negative for any intracranial hemorrhage. I counseled the patient on taking any Tylenol for headache and returning for any neurologic abnormalities or severe sudden increase in headache pain. Patient and patient's verbalized understanding of the plan. Findings not consistent with ICH. Disposition of Mechanical Fall. Patient verbalized understanding of the plan and return to ED criteria and engaged in shared decision making. Medical Records Medical records reviewed: Yes I reviewed the patient's medical records. Imaging Data Radiologic Study: Imaging: CT Scan Radiologist's impression: Exam: CT Head Without Contrast Exam date and time: 06/24/2023 7:58 PM Age: 83 years old Clinical indication: Injury or trauma; Fall; Concussion/head injury; Without loss of consciousness TECHNIQUE: Imaging protocol: Computed tomography of the head without contrast. COMPARISON: No relevant prior studies available. FINDINGS: Brain: Age-related involutional changes and chronic microvascular ischemic disease. No evidence for acute transcortical infarct. No mass effect or midline shift. No extra-axial collection. No acute intracranial hemorrhage. Basal cisterns are patent. Cerebral ventricles: No ventriculomegaly. Paranasal sinuses: Visualized sinuses are unremarkable. No fluid levels. Mastoid air cells: Visualized mastoid air cells are well aerated. Orbital cavities: Bilateral cataract surgery. Bones/joints: Unremarkable. No acute fracture. Soft tissues: Unremarkable. IMPRESSION: No evidence for acute transcortical infarct, acute intracranial hemorrhage, or mass effect. Dictated and Authenticated by: Vipul Brantley MD. Ordering:KENNETH Gallego MD HPI General Date/Time Provider Initiated Documentation: 06/24/23 19:40 . HPI Narrative: 83 year-old male presents to ED today by POV/ambulating with his with a chief complaint of minor fall at home, was going to sit down at the counter, tripped over a dog, bumped his head without overt signs of trauma with onset just prior to arrival. Quality described as no complaints- denies nausea, acting baseline per , denies neck pain, no radiation to visual changes, vomiting, repetitive questioning. Severity is described as 0/10. Palliating factors include nothing specific attempted. Provoking factors include nothing specific. Events leading up to the incident/Associated Symptoms: Patients urged him to come due to Xarelto use. Patient not anticoagulated. Related Data Home Medications Medication Instructions Recorded Confirmed atorvastatin 40 mg tablet 40 mg PO DAILY 02/06/23 06/24/23 cholecalciferol (vitamin D3) 100 2,000 mcg PO DAILY 02/06/23 06/24/23 mcg (4,000 unit) capsule clopidogrel 75 mg tablet 75 mg PO DAILY 02/06/23 06/24/23 coenzyme Q10 100 mg capsule 100 mg PO DAILY 02/06/23 06/24/23 (CoQ-10) docusate sodium 100 mg capsule 100 mg PO DAILY #30 caps 02/06/23 06/24/23 (Colace) magnesium 100 mg tablet 100 mg PO DAILY 02/06/23 06/24/23 metoprolol tartrate 25 mg tablet 25 mg PO DAILY 02/06/23 06/24/23 omega-3 fatty acids 2 cap PO DAILY 02/06/23 06/24/23 pantoprazole 40 mg tablet,delayed 40 mg PO DAILY 02/06/23 06/24/23 release rivaroxaban 20 mg tablet (Xarelto) 20 mg PO DAILY 02/06/23 06/24/23 vitamins A,C,H-ceqz-tdxvec 2,148 1 tab PO BID 02/06/23 06/24/23 mcg-113 mg-45 mg-17.4 mg tablet (PreserVision AREDS) Previous Rx's Medication Instructions Recorded docusate sodium 100 mg capsule 100 mg PO DAILY #30 caps 02/06/23 (Colace) Allergies Allergy/AdvReac Type Severity Reaction Status Date / Time No Known Allergies Allergy Unverified 06/24/23 19:39 General Stated Complaint: Fall/Non TraumaCriteria ANTONI: 3 Review of Systems All systems reviewed & are unremarkable except as noted in HPI and below PFSH All Active Problems (Updated 06/24/23 @ 20:26 by ERIC Paniagua) Fall (Acute) Syncope (Chronic) Medical History (Updated 06/24/23 @ 20:26 by ERIC Paniagua) Prostate cancer GERD (gastroesophageal reflux disease) HTN (hypertension) Social History Smoking/Tobacco Use Status: Former Tobacco Use Quit Date: 11/15/18 Smoking risk assessment performed?: Yes Alcohol Intake: current Alcohol Intake frequency: holidays/special occasions only Alcohol type: beer Drug use: Never Substance use type: does not use Housing: house Do you feel safe at home: Yes Do you feel safe in your relationship?: Yes Exam Narrative Exam Narrative: GENERAL APPEARANCE: Well-nourished, non-toxic, awake and alert, atraumatic, no acute distress. SKIN: Warm, pink, dry, intact, without rashes/lesions/ulcerations. HEAD: Normocephalic, atraumatic- no scalp hematoma, normal hair distribution for gender/age. EYES: Pupils PERRLA, EOMs intact without nystagmus, normal conjunctiva, no exudates on lids/lashes. ENT: Nares patent, no circumoral cyanosis, no facial swelling NECK: Supple, trachea midline, painless cervical ROM, no vertebral tenderness. LUNGS/CHEST: Lungs CTA bilaterally- no rhonchi/rales/wheezes, non-labored respirations, normal A/P diameter, symmetrical expansion, no chest wall deformity HEART (CV/PV): Regular rate and rhythm without murmur, no peripheral edema, no JVD. ABDOMEN: Soft, non-distended, no guarding, no tenderness. MSK: Normal ROM, no swelling/deformity to bilateral UEs or LEs, moving all extremities without weakness, no cyanosis, spine midline without tenderness, normal curvature. NEURO: Mental Status AAOx4 - alert to person, place, time, events No facial droop, no forehead involvement. Motor: No focal weakness - strength 5/5 in bilateral UEs and LEs, proximal and distal, symmetric. Sensory: sensation intact to light touch globally. Gait normal: patient ambulated without ataxia into ED room. PSYCH: euthymic, cooperative, pleasant, appropriate speech Course Vital Signs Vital signs: Vital Signs Temperature 36.2 C L 06/24/23 19:40 Pulse 71 06/24/23 19:40 Respiratory Rate 18 06/24/23 19:40 Blood Pressure 153/77 H 06/24/23 19:40 Pulse Oximetry 94 06/24/23 19:40 Temperature 36.2 C L 06/24/23 19:40 Pulse 71 06/24/23 19:40 Respiratory Rate 18 06/24/23 19:40 Respiratory Effort Normal 06/24/23 19:44 Blood Pressure 153/77 H 06/24/23 19:40 Blood Pressure Position Sitting 06/24/23 19:40 Pulse Oximetry 94 06/24/23 19:40 Oxygen Delivery Method Room Air 06/24/23 19:40 Oxygen Flow Rate 0 06/24/23 19:40
--- NOTE | 2023-06-24 20:52 | DI.VRAD_ITS ---
PROCEDURE INFORMATION: Exam: CT Head Without Contrast Exam date and time: 06/24/2023 7:58 PM Age: 83 years old Clinical indication: Injury or trauma; Fall; Concussion/head injury; Without loss of consciousness TECHNIQUE: Imaging protocol: Computed tomography of the head without contrast. COMPARISON: No relevant prior studies available. FINDINGS: Brain: Age-related involutional changes and chronic microvascular ischemic disease. No evidence for acute transcortical infarct. No mass effect or midline shift. No extra-axial collection. No acute intracranial hemorrhage. Basal cisterns are patent. Cerebral ventricles: No ventriculomegaly. Paranasal sinuses: Visualized sinuses are unremarkable. No fluid levels. Mastoid air cells: Visualized mastoid air cells are well aerated. Orbital cavities: Bilateral cataract surgery. Bones/joints: Unremarkable. No acute fracture. Soft tissues: Unremarkable. IMPRESSION: No evidence for acute transcortical infarct, acute intracranial hemorrhage, or mass effect. Dictated and Authenticated by: Vipul Brantley MD. Ordering:KENNETH Gallego MD
== END 2023-06-24 21:03 | disposition home or self-care (01) ==
PROVIDERS: Emergency Provider Physician Assistant; PCP Student in an Organized Health Care Education/Training Program
DX: S09.90XA Unspecified injury of head, initial encounter (principal); I10 Essential (primary) hypertension; Z79.01 Long term (current) use of anticoagulants; Z87.891 Personal history of nicotine dependence; W01.0XXA Fall on same level from slipping, tripping and stumbling without subsequent striking against object, initial encounter; Y93.89 Activity, other specified; Y92.018 Other place in single-family (private) house as the place of occurrence of the external cause
CPT/HCPCS: 99284; 70450; 99283

== ENCOUNTER 2025-02-09 09:24 | Emergency (ER) | payer MEDICARE, OTHER, SELFPAY ==
[2025-02-09] VITALS (20 sets, daily range): BP systolic 148–149; BP diastolic 72–75; PULSE 55–95; RESP 18–20; TEMP 36.8; O2SAT 94–98
--- NOTE | 2025-02-09 09:45 | DI.CT_ITS ---
Exam(s) CT HEAD CERV SPINE FACIAL WO EXAM: CT HEAD CERV SPINE FACIAL WO CLINICAL HISTORY: fall; complex facial lac, doesnt remember fall. TECHNIQUE: Imaging Protocol: Axial computed tomography images with coronal and sagittal reformatted images were created and reviewed COMPARISON: CT CT HEAD WO from 06/24/2023 FINDINGS: CT Head: Ventricles and Extra axial spaces: Normal in size and morphology for the patient's age. Hemorrhage: None. Cerebral parenchyma: No evidence of acute hemorrhage or acute infarct. Atrophy, consistent with patient's age. White matter changes of small vessel disease. Midline shift: None. Brainstem/Cerebellum: Normal. Calvarium: Normal. Visualized Paranasal sinuses/Mastoids: Clear. Soft Tissues: Unremarkable. CT Face: Facial Bones: No fracture is noted in facial bones. Sinuses and Mastoids: Unremarkable. Globes, extraocular muscles, optic nerves and retrobulbar fat: Normal. Upper aerodigestive tract: Normal. Mandible and bilateral temporomandibular joints: Normal. Soft tissues: Large amount of gas in the soft tissues of the left side of the face, lateral to the maxilla. No foreign body. CT Cervical Spine: Bones: No acute fracture or subluxation. Soft Tissues: Unremarkable. Lung Apices: Scarring and emphysematous changes. IMPRESSION: 1. No acute intracranial process. 2. No acute fracture or subluxation in the cervical spine. 3. No acute facial fracture. Left-sided facial laceration with large amount of air in the soft tissues. RADIATION DOSE DELIVERED: 1,881.4mGy.cm Total DLP DATA REPOSITORY: All CT scans at this facility are submitted to the National Radiology Data Registry (NRDR) Dose Index Registry (DIR) with the [employer] ([employer]). RADIATION OPTIMIZATION: All CT scans at this facility use at least one of these dose optimization techniques: automated exposure control; mA and/or kV adjustment per patient size (includes targeted exams where dose is matched to clinical indication); or iterative reconstruction.
--- NOTE | 2025-02-09 10:51 | ED.GENADUL_ITS ---
Discharge Plan Disposition Patient Disposition: Transfer-Acute Inpatient Care Specific Acute Inpt Facility: [facility] Condition: Stable Discharge Details Clinical Impression: Complex laceration of circumoral region of face Primary Care Provider: Gita Casas ED Provider: Julián Brooks Home Meds and New Rx's Prescriptions: No Action atorvastatin 40 mg tablet 40 mg PO DAILY clopidogrel 75 mg tablet 75 mg PO DAILY pantoprazole 40 mg tablet,delayed release (DR/EC) 40 mg PO DAILY magnesium 100 mg Tablet 100 mg PO DAILY coenzyme Q10 [CoQ-10] 100 mg Capsule 100 mg PO DAILY omega-3 fatty acids Capsule 2 cap PO DAILY metoprolol tartrate 25 mg tablet 25 mg PO DAILY PreserVision AREDS 2,148 mcg-113 mg-45 mg-17.4mg Tablet 1 tab PO BID Xarelto 20 mg tablet 20 mg PO DAILY cholecalciferol (vitamin D3) 100 mcg (4,000 unit) Capsule 2,000 mcg PO DAILY docusate sodium [Colace] 100 mg capsule 100 mg PO DAILY Qty: 30 0RF terazosin 2 mg capsule 2 mg PO DAILY carbidopa-levodopa 25-100 mg tablet 1 tab PO TID Trelegy Ellipta 100-62.5-25 mcg blister with device 1 inh INHALATION PRN HPI General Date/Time Provider Initiated Documentation: 02/09/25 09:36 . HPI Narrative: 84 year-old male presents to ED today by POV/ambulating with his with a chief complaint of fall in the bathroom around 0900 this morning- his came in and found him on the floor with a lot of blood coming from his mouth- was able to get him up to the toilet and noticed a significant lip laceration. Quality described as painful laceration in mouth, denies headache, no radiation to chest pain or palpitations prior to fall though he does not recall events, denies recent GI illness or dehydration/poor PO intake. Patient has frequent falls in history, other bruises of varying ages from falls. Severity is described as moderate. Palliating factors include nothing specific attempted. Provoking factors include nothing specific. Patient not anticoagulated. They discontinued Xarelto and Plavix >6 months ago. Related Data Home Medications ?Medication ?Instructions ?Recorded ?Confirmed atorvastatin 40 mg tablet 40 mg PO DAILY 02/06/2301/30 cholecalciferol (vitamin D3) 100 2,000 mcg PO DAILY 02/09/25 mcg (4,000 unit) capsule clopidogrel 75 mg tablet 75 mg PO DAILY 02/06/2301/30 coenzyme Q10 100 mg capsule 100 mg PO DAILY 02/06/23 0 02/09/25 (CoQ-10) docusate sodium 100 mg capsule 100 mg PO DAILY #30 cap s 02/06/23 02/09/25 (Colace) magnesium 100 mg tablet 100 mg PO DAILY 02/06/2305/26 metoprolol tartrate 25 mg tablet 25 mg PO DAILY 02/09/25 omega-3 fatty acids 2 cap PO DAILY 02/06/2301/30 pantoprazole 40 mg tablet,delayed 40 mg PO DAILY 02/0602/09/25 release rivaroxaban 20 mg tablet (Xarelto) 20 mg PO DAILY 02/2102/09/25 vitamins A,C,Q-mhqz-ykrfsr 2,148 1 tab PO BID 02/06/23 02/09/25 mcg-113 mg-45 mg-17.4 mg tablet (PreserVision AREDS) carbidopa 25 mg-levodopa 100 mg 1 tab PO TID 02/09/25 02/09/25 tablet fluticasone fur. 100 mcg-umeclid 1 inh inhalation PRN 02/09/25 02/09/25 62.5 mcg-vilant 25 mcg inhalat.powder (Trelegy Ellipta) terazosin 2 mg capsule 2 mg PO DAILY 02/09/2502/09 Previous Rx's ?Medication ?Instructions ?Recorded docusate sodium 100 mg capsule 100 mg PO DAILY #30 cap s 02/06/23 (Colace) Allergies Allergy/AdvReac Type Severity Reaction Status Date / Time No Known Allergies Allergy Unverified 02/09/25 09:37 General Stated Complaint: Fall/Non TraumaCriteria ANTONI: 3 Review of Systems All systems reviewed & are unremarkable except as noted in HPI and below Exam Narrative Exam Narrative: GENERAL APPEARANCE: Well-nourished, non-toxic, awake and alert, atraumatic, no acute distress. SKIN: Warm, pink, dry, intact, without rashes/lesions/ulcerations. HEAD: Normocephalic, atraumatic- no scalp hematoma or abrasion, normal hair distribution for gender/age. EYES: Normal conjunctiva, no exudates on lids/lashes, neglect with EOM H-testi ng, EOMs are intact with following activity ENT: Nares patent, no circumoral cyanosis, no facial swelling- complex 5cm L upper lip laceration affecting nory border, and through inner mucosa invo lving from philtrum to L canthus NECK: Supple, trachea midline, painless cervical ROM. LUNGS/CHEST: Lungs CTA bilaterally- no rales at bases, non-labored respirations, normal A/P diameter, symmetrical expansion, no chest wall deformity, no crepitus/flail segment HEART (CV/PV): Regular rate and rhythm without murmur, no peripheral edema, no JVD. ABDOMEN: Soft, non-distended, no guarding, no tenderness. MSK: Normal ROM, no swelling/deformity to bilateral UEs or LEs, moving all extremities without weakness, no cyanosis, spine midline without tenderness, normal curvature. NEURO: Mental Status AAOx3 - alert to person, place, time- not event No facial droop, no forehead involvement, some neglect with FNF bilat UEs- unclear baseline Motor: No focal weakness - strength 5/5 in bilateral UEs and LEs, proximal and distal, symmetric. Sensory: sensation intact to light touch globally. Gait unsteady at baseline PSYCH: euthymic, cooperative, pleasant, appropriate speech Course Vital Signs Vital signs: Vital Signs Pulse 95 H 02/09/25 09:34 Respiratory Rate 20 02/09/25 09:34 Blood Pressure 148/72 H 02/09/25 09:34 Pulse Oximetry 94 02/09/25 09:34 Pulse 95 H 02/09/25 09:34 Respiratory Rate 20 02/09/25 09:34 Blood Pressure 148/72 H 02/09/25 09:34 Blood Pressure Position Sitting 02/09/25 09:34 Pulse Oximetry 94 02/09/25 09:34 Oxygen Delivery Method Room Air 02/09/25 09:34 Oxygen Flow Rate 0 02/09/25 09:34 Medical Decision Making This dictation utilizes [id number] dictation software and may contain unedited grammatical errors. 84 year-old male presents to ED today by POV/ambulating with his with a chief complaint of fall in the bathroom around 0900 this morning- his came in and found him on the floor with a lot of blood coming from his mouth- was able to get him up to the toilet and noticed a significant lip laceration. Quality described as painful laceration in mouth, denies headache, no radiation to chest pain or palpitations prior to fall though he does not recall events, denies recent GI illness or dehydration/poor PO intake. Patient has frequent falls in history, other bruises of varying ages from falls. Severity is described as moderate. Palliating factors include nothing specific attempted. Provoking factors include nothing specific. Patient not anticoagulated. They discontinued Xarelto and Plavix >6 months ago. Patients' medical history: GERD, hypertension, prostate cancer progressive supranuclear ophthalmoplegia, gait disturbance, chronic respiratory failure, atrial fibrillation amyloidosis, history of NSTEMI, CHF. Family and social history: Visits their camp in the [facility]- from the [place] area, eats normal diet. Pertinent exam findings / vital signs include complex through and through lip laceration on the left upper lip that is longitudinal from the center of the lip to the left canthus with a large flap protruding upward and multiple areas of through and through puncture to the left cheek inner mucosal surface, crooked teeth unclear of chronicity, no cervical spine tenderness, no tenderness to c hest or rib cage, has bruise to the left shoulder from a prior fall this week, moving all extremities, answering questions at baseline per patient's , some neglect with EOM testing and [id number] bilateral UEs. Differential / pathologies of concern include facial fracture, ICH, vertebral fracture, complex facial laceration. Diagnostic studies of: -CBC, CMP, Trop I, Magnesium, UA, CT Head/C-Spine/Facial Bones wo Contrast, EKG. - CT shows no acute pathology - EKG sinus rhythm at 66 bpm with P waves followed by a narrow complex QRS with no ST changes of ischemia, no T wave inversions, normal QT QTc, prolonged IN 207 - CBC shows nonspecific elev abs. neutrophils - Trop I negative - Magnesium WNL - CMP unremarkable - UA benign Interventions of: -Consulted with Dr. Minor of General Surgery- agrees that patient likely needs definitive OMFS/facial surgeon - consulted with [facility] as patients' are from [place], spoke with Dr. Benitez at 1110- recommends they present to [facility] ED for evaluation, ED physician accepting of Dr. Garland at 1114. Patients' can reasonably go POV as they had made it here without issue- patient and patients agreed with this plan. NPO status confirmed. ED Course/Assessment/Plan: 84-year-old male presents with multiple falls over the past week with a complex left upper lip laceration requiring likely extensive repair, consulted with our surgeon Dr. Minor who recommends OMFS or facial consult, [facility] Dr. Benitez does recommend [facility] ED evaluation and Dr. Garland excepting, reasonable to go by POV as the patient appears to have an isolated lip laceration and was POV en route to our ER today, he is not on blood thinners and his EKG is benign, unclear cause of fall but unlikely to be ACS related. Findings not consistent with ACS, ICH, Vertebral Fracture, Facial Fracture, Airway Compromise. Disposition of Complex Laceration of Circumoral Region of Face. Patient verbalized understanding of the plan and return to ED criteria and en gaged in shared decision making. Medical Records Medical records reviewed: Yes I reviewed the patient's medical records. Imaging Data Radiologic Study: Attestation: I personally reviewed and interpreted this imaging study as follows: Imaging: CT Scan Radiologist's impression: EXAM: CT HEAD CERV SPINE FACIAL WO CLINICAL HISTORY: fall; complex facial lac, doesnt remember fall. TECHNIQUE: Imaging Protocol: Axial computed tomography images with coronal and sagittal reformatted images were created and reviewed COMPARISON: CT CT HEAD WO from 06/24/2023 FINDINGS: CT Head: Ventricles and Extra axial spaces: Normal in size and morphology for the patient's age. Hemorrhage: None. Cerebral parenchyma: No evidence of acute hemorrhage or acute infarct. Atrophy, consistent with patient's age. White matter changes of small vessel disease. Midline shift: None. Brainstem/Cerebellum: Normal. Calvarium: Normal. Visualized Paranasal sinuses/Mastoids: Clear. Soft Tissues: Unremarkable. CT Face: Facial Bones: No fracture is noted in facial bones. Sinuses and Mastoids: Unremarkable. Globes, extraocular muscles, optic nerves and retrobulbar fat: Normal. Upper aerodigestive tract: Normal. Mandible and bilateral temporomandibular joints: Normal. Soft tissues: Large amount of gas in the soft tissues of the left side of the face, lateral to the maxilla. No foreign body. CT Cervical Spine: Bones: No acute fracture or subluxation. Soft Tissues: Unremarkable. Lung Apices: Scarring and emphysematous changes. IMPRESSION: 1. No acute intracranial process. 2. No acute fracture or subluxation in the cervical spine. 3. No acute facial fracture. Left-sided facial laceration with large amount of air in the soft tissues. Lab Data Lab results reviewed: Yes I reviewed the patient's lab results. Labs: Laboratory Tests Range/Units 02/09/25 02/09/25 11:35 11:40 WBC (4.4-10.8) 10^3/uL 10.30 RBC (4.36-5.78) 10^6/uL 4.55 Hgb (13.5-17.5) g/dL 14.1 Hct (40.0-50.0) % 42.0 MCV (80-95) fL 92 MCH (27.0-33.0) pg 31.0 MCHC (32.0-36.0) % 33.6 RDW (11.8-14.1) % 13.6 Plt Count (130-400) 10^3/uL 210 MPV (8.0-11.0) fL 9.8 Immature Gran % % 0.3 Neutrophils % % 76.7 Lymphocytes % % 11.7 Monocytes % % 10.3 Eosinophils % % 0.7 Basophils % % 0.3 Nucleated RBC % (0.0-0.3) % 0.0 Absolute Neutrophils (1.2-6.7) 10^3/uL 7.90 H Absolute Lymphocytes (1.2-3.4) 10^3/uL 1.21 Absolute Monocytes (0.1-0.8) 10^3/uL 1.06 H Absolute Eosinophils (0.0-0.7) 10^3/uL 0.07 Absolute Basophils (0.0-0.2) 10^3/uL 0.03 Sodium (136-145) mmol/L 141 Potassium (3.5-5.1) mmol/L 3.8 Chloride (98-107) mmol/L 104 Carbon Dioxide (21.0-32.0) mmol/L 28.6 Anion Gap (3-11) mmol/L 8.4 BUN (7-18) mg/dL 17 Creatinine (0.70-1.30) mg/dL 1.1 Est GFR (CKD-EPI 2020) (mL/min/1.73m2) 65.79 Glucose (74-106) mg/dL 105 Calcium (8.5-10.1) mg/dL 9.1 Magnesium (1.8-2.4) mg/dL 2.2 Total Bilirubin (0.2-1.0) mg/dL 0.6 AST (15-37) U/L 27 ALT (16-63) U/L 12 L Alkaline Phosphatase (46-116) U/L 140 H Troponin I (<or=76) ng/L 16 Total Protein (6.4-8.2) g/dL 7.2 Albumin (3.4-5.0) g/dL 3.8 Urine Color (Yellow) Yellow Urine Clarity (Clear) Clear Urine pH (5-8) 6.5 Ur Specific [place] (1.005-1.025) 1.010 Urine Protein (Neg-Trace) mg/dL Negative Urine Ketones (Negative) mg/dL Negative Urine Blood (Negative) Negative Urine Nitrite (Negative) Negative Urine Bilirubin (Negative) Negative Urine Urobilinogen (Up to 0.2) mg/dL 0.2 Ur Leukocyte Esterase (Negative) Negative Urine Glucose (Negative) mg/dL Negative PFSH All Active Problems (Updated 02/09/25 @ 12:20 by ERIC Paniagua) Complex laceration of circumoral region of face (Acute) Syncope (Chronic) Medical History (Updated 02/09/25 @ 12:20 by ERIC Paniagua) Prostate cancer GERD (gastroesophageal reflux disease) HTN (hypertension) Social History Smoking/Tobacco Use Status: Former Tobacco Use Quit Date: 11/15/18 Smoking risk assessment performed?: Yes Alcohol Intake: current Alcohol Intake frequency: holidays/special occasions only Alcohol type: beer Drug use: Never Substance use type: does not use Details: does not do any substances Housing: house Do you feel safe at home: Yes Do you feel safe in your relationship?: Yes Additional Social history: patient is here with his partner of 22years Lizzie PEREZ Have you Been Recently Intoxicated or Drunk Within the Last 30 days?: No Have you Ever Experienced Previous Episodes of Alcohol Withdrawal?: No Have you ever Experienced Withdrawal Seizures?: No Have you ever Experienced Delirium Tremens(DT)s?: No Have you ever undergone Alcohol Rehabilitation Treatment (i.e, inpt ot outpatient treatment programs)?: No Have you ever Experienced Blackouts?: No Have you ever Combined Alcohol with other Downers within the last 90 days?: No Have you ever Combined Alcohol with any other Substance of Abuse during the last 90 days?: No Positive Blood Alcohol level on Presentation? [PCS.BAL]: No Evidence of Increased Autonomic Activity (i.e. HR>120, tremor, sweating, agitation, nausea)?: No Result: 0
--- NOTE | 2025-02-09 11:15 | RT.EKG_ITS ---
APPROVED REPORT Exam: Resting ECG Reason for Exam: syncope Patient Location: E HR:66 bpm ECG Measurements Heart Rate 66 AXIS SD 207 P 0 QRSd 78 QRS -29 QT 429 T 10 QTc 449 Conclusion Sinus rhythm, rate 66 No interval abnormalities No STEMI Q waves III, aVF, no priors available for comparison
[2025-02-09 11:48] LABS: Abs Immature Grans 0.03 10^3/uL (0.0-0.06); HCT 42.0 % (40.0-50.0); HGB 14.1 g/dL (13.5-17.5); Immature Grans % 0.3 %; MCH 31.0 pg (27.0-33.0); MCHC 33.6 % (32.0-36.0); MCV 92 fL (80-95); MPV 9.8 fL (8.0-11.0); Platelet Count 210 10^3/uL (130-400); RBC 4.55 10^6/uL (4.36-5.78); RDW 13.6 % (11.8-14.1); RDW-SD 46.5 fL; WBC 10.30 10^3/uL (4.4-10.8)
[2025-02-09 12:00] LABS: Glucose Negative (Negative)
[2025-02-09 12:05] LABS: ALT 12 U/L (16-63); AST 27 U/L (15-37); Albumin 3.8 g/dL (3.4-5.0); Alkaline Phosphatase 140 U/L (46-116); Anion Gap 8.4 mmol/L (3-11); BUN 17 mg/dL (7-18); Bilirubin, Total 0.6 mg/dL (0.2-1.0); CO2 28.6 mmol/L (21.0-32.0); Calcium 9.1 mg/dL (8.5-10.1); Chloride 104 mmol/L (98-107); Estimated GFR 65.79 (mL/min/1.73m2); Glucose 105 mg/dL (74-106); Magnesium 2.2 mg/dL (1.8-2.4); Potassium 3.8 mmol/L (3.5-5.1); Sodium 141 mmol/L (136-145); Total Protein 7.2 g/dL (6.4-8.2)
[2025-02-09 12:09] LABS: Troponin I 16 ng/L (<or=76)
== END 2025-02-09 12:49 | disposition short-term general hospital (02) ==
PROVIDERS: Emergency Provider Physician Assistant; PCP Student in an Organized Health Care Education/Training Program
DX: S01.511A Laceration without foreign body of lip, initial encounter (principal); S01.432A Puncture wound without foreign body of left cheek and temporomandibular area, initial encounter; X19.XXXA Contact with other heat and hot substances, initial encounter
CPT/HCPCS: 99285 ×2; 36415; 80053; 93005; 70450; 70486; 72125; 81003; 83735; 84484; 85025; 93010